=== PATIENT | male | born 1985 | race Two or more races ===

== ENCOUNTER 2017-09-04 16:36 | Emergency (ER) | payer SELFPAY ==
[~2017-09-04] VITALS: Ht 177.8 cm; Wt 85.8 kg
[2017-09-04 16:53] VITALS: BP 137/89
[2017-09-04 17:41] LABS: HEMATOCRIT 47.5 % (38.0-50.0); MCH 30.9 PG (29.0-34.0); MCV 85.7 FL (86-99); MEAN PLAT.VOLUME 9.6 uM^3 (9.0-12.4); PLATELET COUNT 230 K/uL (156-360); RBC DIS.WIDTH-CV 11.3 % (11.8-14.6); RBC DIS.WIDTH-SD 35.5 % (39-53); RED BLOOD COUNT 5.54 M/uL (4.00-5.50); WHITE BLOOD COUNT 7.9 K/uL (4.1-10.2)
[2017-09-04 17:49] LABS: CHLORIDE 109 mEq/L (99-109); POTASSIUM 3.6 mEq/L (3.7-5.4); SODIUM 142 mEq/L (136-147)
[2017-09-04 17:50] LABS: GLUCOSE 91 mg/dL (70-99)
[2017-09-04 17:52] LABS: ANION GAP 12 MEQ/L (2-14)
[2017-09-04 17:55] LABS: UREA NITROGEN (BUN) 10 mg/dL (9-23)
[2017-09-04 17:56] LABS: GFR ESTIMATE (CALCULATED) > 59 mL/min/
[2017-09-04 18:00] LABS: TROP-I INTERPRETATION NEGATIVE; TROPONIN-I < 0.01 ng/mL (0.0-0.30)
== END 2017-09-04 21:23 | disposition left against medical advice (07) ==
LOC: EME 16:36
DX: R07.9 Chest pain, unspecified (principal); Z53.21 Procedure and treatment not carried out due to patient leaving prior to being seen by health care provider
CPT/HCPCS: 71020; 80048; 84484; 85027; 93005

== ENCOUNTER 2017-11-15 19:47 | Emergency (ER) | payer OTHER ==
[~2017-11-15] VITALS: Ht 177.8 cm; Wt 86.2 kg
[2017-11-15 19:49] VITALS: BP 136/86
== END 2017-11-15 22:14 | disposition left against medical advice (07) ==
LOC: EME 19:47
DX: S00.11XA Contusion of right eyelid and periocular area, initial encounter (principal); S00.83XA Contusion of other part of head, initial encounter; Y04.0XXA Assault by unarmed brawl or fight, initial encounter; Z88.5 Allergy status to narcotic agent; Z88.2 Allergy status to sulfonamides